=== PATIENT | female | born 2005 | race Caucasian/White ===

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

== ENCOUNTER 2024-07-14 21:16 | Emergency (ER) | payer SELFPAY ==
[2024-07-14 21:18] VITALS: BP 119/76; PULSE 80; RESP 18; TEMP 36.8; O2SAT 98; BMI 34.2
[2024-07-14 21:23] VITALS: TEMP 36.8; O2SAT 98
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
[2024-07-14] MEDS: Ibuprofen 600 MG Tablet PO (21:32)
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
[2024-07-14 22:21] VITALS: BP 119/74; PULSE 77; RESP 16; TEMP 36.7; O2SAT 98
== END 2024-07-14 22:22 | disposition home or self-care (01) ==
PROVIDERS: Emergency Provider Emergency Medicine; Visit Provider Emergency Medicine
DX: S20.212A Contusion of left front wall of thorax, initial encounter (principal); S80.02XA Contusion of left knee, initial encounter; V43.52XA Car driver injured in collision with other type car in traffic accident, initial encounter; Y92.410 Unspecified street and highway as the place of occurrence of the external cause; F17.290 Nicotine dependence, other tobacco product, uncomplicated
CPT/HCPCS: 71046; 73564; 99283